=== PATIENT | female | born 1955 | race Caucasian/White ===

== ENCOUNTER → 2020-10-23 10:35 | Outpatient (CLI) | payer MEDICARE, OTHER, SELFPAY ==
--- NOTE | 2020-10-23 10:39 | DI.US.S_ITS ---
PROCEDURE: US PELVIC COMPLETE INDICATIONS: PMB. TECHNIQUE: Real-time scanning was performed of the pelvic organs, with image documentation. Additional endovaginal scanning was necessary due to incomplete visualization of the adnexal and endometrial structures by transabdominal scanning. COMPARISON: None. FINDINGS: Uterus: Uterus is retroverted and normal in size at 7.6 x 7.1 x 5.2 cm. Left posterior intramural fibroid measuring 0.8 x 0.5 x 0.4 cm. The endometrium measures 0.6 mm in combined thickness. Ovaries: Right ovary measures 1.8 x 1.2 x 0.8 cm. Left ovary or left ovarian mass measuring 2.8 x 2.8 x 2.5 cm. There is prominent internal vascularity. Other: No pathologic free abdominal or pelvic fluid. IMPRESSION: 1. Endometrial thickness measures 0.6 cm in this postmenopausal patient with bleeding. This could be seen in endometrial carcinoma. -Recommend endometrial biopsy. 2. Asymmetric enlargement of the left ovary or left ovarian mass measuring 2.8 cm. -Consider further evaluation with pelvic MRI with IV contrast. Recommend follow-up pelvic ultrasound. 3. Small intramural fibroid. Dictated by: Darek Rosas M.D. on 10/23/2020 at 12:59 Approved by: Darek Rosas M.D. on 10/23/2020 at 13:16
== END ==
PROVIDERS: PCP Family Medicine; Referring Provider Specialist; Visit Provider Specialist
DX: N95.0 Postmenopausal bleeding (principal); R93.89 Abnormal findings on diagnostic imaging of other specified body structures; D25.1 Intramural leiomyoma of uterus; N83.8 Other noninflammatory disorders of ovary, fallopian tube and broad ligament
CPT/HCPCS: 76830; 76856

== ENCOUNTER → 2020-10-24 10:46 | Outpatient (CLI) | payer MEDICARE, OTHER, SELFPAY ==
[2020-10-24 14:08] LABS: Cancer Antigen 125 9.5 U/mL (0-35)
[2020-10-27 10:51] LABS: Human Epididymis Prot 4 62.6 pmol/L (0.0-96.5)
[2020-10-28 13:36] LABS: Inhibin A, Ultrasensitive 3.6 pg/mL (.); Inhibin B 55.6 pg/mL (0.0-16.9)
[2020-10-29 01:58] LABS: Anti Mullerian Hormone <0.015 ng/mL (.)
== END ==
PROVIDERS: PCP Family Medicine; Referring Provider Specialist; Visit Provider Specialist
DX: R19.09 Other intra-abdominal and pelvic swelling, mass and lump (principal); D49.59 Neoplasm of unspecified behavior of other genitourinary organ; N83.8 Other noninflammatory disorders of ovary, fallopian tube and broad ligament
CPT/HCPCS: 36415; 82397; 82670; 83520; 86304; 86305; 86336